=== PATIENT | male | born 1965 | race Caucasian/White ===

== ENCOUNTER → 2023-03-09 | Day surgery (SDC) | payer BC, OTHER ==
[~2023-03-09] MED LIST: SODIUM CHLORIDE 0.9% 1,000 ML IV SCH; SODIUM CHLORIDE 0.9% 500 ML 500 ML IV ONE
[2023-03-09 10:56] LABS: Glucose,Whole Blood 145 mg/dL (70-110)
[2023-03-09 11:05] VITALS: BP 128/89; PULSE 80; RESP 16; TEMP 98
--- NOTE | 2023-03-09 16:10 | P.EPPROC ---
- EP Procedure Note Electrophysiology Procedure Note: Diagnosis Recurrent syncope Twelve-lead EKG shows sinus mechanism normal CA narrow QRS normal ST segments Tilt table test a protocol Baseline blood pressure 118/78 mmHg, Baseline heart rate 75-80 beats a minute Patient was tilted upright at an angle of 70 per protocol No change in his blood pressure Minimal increase in his heart rate to 98 beats a minute within the first 10 minutes Subsequently his heart rate remained in the low 100s He felt lightheaded with normal blood pressure With he is laid supine his blood pressure remained unchanged heart rate went down to the 70s Impression Normal twelve-lead EKG Likely orthostatic intolerance
== END ==
LOC: CATHEP 10:12
PROVIDERS: ATTEND Internal Medicine Clinical Cardiac Electrophysiology
DX: R55 Syncope and collapse (principal); I10 Essential (primary) hypertension; E11.9 Type 2 diabetes mellitus without complications; E78.5 Hyperlipidemia, unspecified; Z79.899 Other long term (current) drug therapy
CPT/HCPCS: 93660